=== PATIENT | male | born 1950 | race Caucasian/White ===

== ENCOUNTER → 2016-04-21 | Outpatient (CLI) | payer OTHER ==
--- NOTE | 2016-04-21 10:37 | MR ---
Unenhanced MRI of the Cervical Spine Clinical History: 65-year-old male with cervicalgia, stiffness, and a limited range of motion. Evalua te for facet arthropathy and/or facet effusion. ICD 10 Diagnostic Code: M54.2. Technique: Sagittal T1 FLAIR, FSE T2, and T2 STIR sequences were obtained from the clivus caudally to the cephalad portion of T4 and supplemented by axial 3-D MERGE with ASSET and T2 CUBE sequences. Comparison Study: MR imaging of the thoracic spine, dated June 01, 2015. Findings: The vertebral body heights are notable for a mild old ventral concavity at the C6 level wit h small ventral traction osteophytes at C5 and C6. Bone marrow signal is within normal limits. Brushing Operator ior alignment is anatomic. The spinal cord caliber and signal are normal, with no cord edema, gliosis , demyelination, or syrinx. The visualized infratentorial structures and the craniocervical junction appear normal. A saturation band obscures portions of the prevertebral soft tissues, however, there i s no abnormality observed. The C1-C2 level is within normal limits. The predental space is normal. The C2-C3 level is normal, with no central canal or neural foraminal stenosis. The facet joints appea r normal. At the C3-C4 level, there is mild facet hypertrophy with mild uncovertebral hypertrophy on the left, resulting in mild left neural foraminal narrowing. The central canal and the right neural foramen rem ain relatively patent. At the C4-C5 level, there is a small dorsal disk osteophyte complex slightly effacing the ventral the tree sac; however, there still an adequate AP canal diameter. There is a mild degree of facet hypertro phy. There is no significant neural foraminal or lateral recess narrowing. At the C5-C6 level, there is a small right paracentral disk bulge slightly effacing the right paracen tral canal and the right lateral recess. Uncovertebral hypertrophy and facet degenerative hypertrophy result in moderate right neural foraminal stenosis and a [id number] left neural foraminal sten osis. At the C6-C7 level, there is some broad-based circumference disk bulging slightly effacing the ventra l thecal sac, resulting in a mild degree of right paracentral canal narrowing. The AP canal diameter still measures 11 mm. There is a mild degree of right and left neural foraminal stenosis. At the C7-T1 level, there is no focal disk herniation, or significant canal or neural foraminal impin gement. There may be a mild degree of bilateral facet hypertrophy. Impression: 1. 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 2. Small dorsal disk osteophyte complexes and/or disk bulging at the C4-C5, C5-C6, and C6-C7 levels, without significant impingement. 3. The degree of greatest neural foraminal stenoses are at C5-C6 and C6-C7 levels, as above-detailed. There are some variable degrees of facet hypertrophy, but no facet joint effusion is observed.
== END ==
LOC: FIMAGING 08:37
PROVIDERS: ATTEND Physical Medicine & Rehabilitation
DX: M54.2 Cervicalgia (principal); M43.02 Spondylolysis, cervical region; M25.78 Osteophyte, vertebrae; M48.02 Spinal stenosis, cervical region